=== PATIENT | female | born 1965 | race American Indian/Alaskan Native ===

== ENCOUNTER 2017-07-09 00:58 | Emergency (ER) | payer SELFPAY ==
[2017-07-09] MEDS ORDERED: TYLENOL ONE (02:30)
[2017-07-09 03:37] LABS: Anion Gap 18 mmol/L; BUN/Creatinine Ratio 14.28; Blood Urea Nitrogen 10 mg/dL (7-17); Calcium 9.2 mg/dL (8.4-10.2); Carbon Dioxide 21 mmol/L (22-30); Chloride 98.8 mmol/L (98-107); Glucose 117 mg/dL (65-100); Sodium 134 mmol/L (137-145)
[2017-07-09 03:57] LABS: Basophils % (Auto) 0.6 % (0.0-1.8); Eosinophils % (Auto) 0.3 % (0.0-4.3); Hematocrit 36.3 % (30.3-42.9); Hemoglobin 12.5 gm/dl (10.1-14.3); Mean Corpuscular HGB Conc 35 % (30-34); Mean Corpuscular Hemoglobin 30 pg (28-32); Mean Corpuscular Volume 87 fl (79-97); Platelet Count 457 K/mm3 (140-440); Red Blood Count 4.15 M/mm3 (3.65-5.03); Red Cell Distribution Width 14.4 % (13.2-15.2)
[2017-07-09 04:00] LABS: Bacteria,Urine 1+ /HPF (Negative); Bilirubin,Urine NEG (Negative); Blood,Urine SM (Negative); Ketones,Urine NEG (Negative); Leukocyte Esterase,Urine NEG (Negative); Mucus,Urine FEW /HPF; Nitrite,Urine NEG (Negative); Protein,Urine <15 mg/dL mg/dL (Negative); Urobilinogen,Urine < 2.0 mg/dL (<2.0)
[2017-07-09] MEDS ORDERED: TYLENOL PO ONE (06:58)
--- NOTE | 2017-07-09 07:02 | Emergency Department Report ---
HPI - General Chief Complaint: Skin/Abscess/Foreign Body Time Seen by Provider: 07/09/17 06:49 - HPI HPI: Room 24 The patient is a 51-year-old female presenting with a chief complaint of "boils " on left buttocks. The patient states early last week she noticed "boils" on her left buttocks. Patient states it became increasingly painful to sit on. Patient notices subjective fever at home. The patient gives the pain score of 6 /10 Location: Left buttocks Duration: Approximately 1 week Quality: Pain Severity: 6/10 Modifying factors: Sitting down increases the pain Context: [see above] Mode of transportation: The patient drove herself to the emergency department and although she has a visitor present she is the only one able to drive ED Past Medical Hx - Past Medical History Previous Medical History?: Yes Hx Hypertension: Yes - Surgical History Past Surgical History?: Yes Additional Surgical History: Breast reduction, lippo suction, and Csectx 1 - Family History Family history: no significant - Social History Smoking Status: Never Smoker Substance Use Type: Alcohol (occasional) - Medications Home Medications: Home Medications Medication Instructions Recorded Confirmed Last Taken Type Ciprofloxacin HCl [Ciprofloxacin 500 mg PO Q12HR #14 tab 07/09/17 Unknown Rx TAB] HYDROcodone/APAP 5-325 [Bells 1 - 2 each PO Q6HR PRN #14 tablet 07/09/17 Unknown Rx 5/325] Sulfamethoxazole/Trimethoprim 1 each PO BID #14 tablet 07/09/17 Unknown Rx [Bactrim DS TAB] ED Review of Systems ROS: Stated complaint: LEFT SIDE WEAKNESSS Other details as noted in HPI Comment: All other systems reviewed and negative Constitutional: fever Eyes: denies: eye pain, eye discharge, vision change ENT: denies: ear pain, throat pain Respiratory: denies: cough, shortness of breath, wheezing Cardiovascular: denies: chest pain, palpitations Endocrine: no symptoms reported Gastrointestinal: denies: abdominal pain, nausea, diarrhea Genitourinary: denies: urgency, dysuria, discharge Musculoskeletal: denies: back pain, joint swelling, arthralgia Skin: lesions Neurological: denies: headache, weakness, paresthesias Psychiatric: denies: anxiety, depression Hematological/Lymphatic: denies: easy bleeding, easy bruising Physical Exam - Physical Exam Vital Signs: Vital Signs 07/09/17 07/09/17 01:05 02:28 Temperature 102.2 F H 102.2 F H Pulse Rate 111 H 102 H Respiratory 22 22 Rate Blood Pressure 150/103 Blood Pressure 150/103 [Right] O2 Sat by Pulse 94 96 Oximetry Physical Exam: GENERAL: The patient is well-developed well-nourished female lying on stretcher not appearing to be in acute distress. [] HEENT: Normocephalic. Atraumatic. Extraocular motions are intact. Patient has moist mucous membranes. NECK: Supple. Trachea midline CHEST/LUNGS: Clear to auscultation. There is no respiratory distress noted. HEART/CARDIOVASCULAR: Regular. There is no tachycardia. There is no gallop rub or murmur. ABDOMEN: Abdomen is soft, nontender. Patient has normal bowel sounds. There is no abdominal distention. SKIN: There are 2 circular regions of skin breakdown along the left buttocks approximately 1 cm in diameter each. There is no overlying cellulitis/ erythema. There is no increased warmth. There is no fluctuance or areas of induration. No evidence of infection present on the left buttocks. There is no edema. There is no diaphoresis. NEURO: The patient is awake, alert, and oriented. The patient is cooperative. The patient has normal speech MUSCULOSKELETAL: There is no evidence of acute injury. ED Course Vital Signs 07/09/17 07/09/17 01:05 02:28 Temperature 102.2 F H 102.2 F H Pulse Rate 111 H 102 H Respiratory 22 22 Rate Blood Pressure 150/103 Blood Pressure 150/103 [Right] O2 Sat by Pulse 94 96 Oximetry ED Medical Decision Making - Lab Data Result diagrams: 07/09/17 02:49 07/09/17 02:49 Laboratory Tests 07/09/17 07/09/17 07/09/17 02:49 02:49 02:49 WBC 16.0 H RBC 4.15 Hgb 12.5 Hct 36.3 MCV 87 MCH 30 MCHC 35 H RDW 14.4 Plt Count 457 H Lymph % (Auto) 6.0 L [place] % (Auto) 6.4 Eos % (Auto) 0.3 Baso % (Auto) 0.6 Lymph # 1.0 L [place] # 1.0 H Eos # 0.1 Baso # 0.1 Seg Neutrophils % 86.7 H Seg Neutrophils # 13.9 H Sodium 134 L Potassium 4.0 Chloride 98.8 Carbon Dioxide 21 L Anion Gap 18 BUN 10 Creatinine 0.7 Estimated GFR > 60 BUN/Creatinine Ratio 14.28 Glucose 117 H Lactic Acid 1.10 Calcium 9.2 HCG, Qual Urine Color Urine Turbidity Urine pH Ur Specific [place] Urine Protein Urine Glucose (UA) Urine Ketones Urine Blood Urine Nitrite Urine Bilirubin Urine Urobilinogen Ur Leukocyte Esterase Urine WBC (Auto) Urine RBC (Auto) U Epithel Cells (Auto) Urine Bacteria (Auto) Urine Mucus 07/09/17 07/09/17 02:49 Unknown WBC RBC Hgb Hct MCV MCH MCHC RDW Plt Count Lymph % (Auto) [place] % (Auto) Eos % (Auto) Baso % (Auto) Lymph # [place] # Eos # Baso # Seg Neutrophils % Seg Neutrophils # Sodium Potassium Chloride Carbon Dioxide Anion Gap BUN Creatinine Estimated GFR BUN/Creatinine Ratio Glucose Lactic Acid Calcium HCG, Qual Negative Urine Color Yellow Urine Turbidity Clear Urine pH 5.0 Ur Specific [place] 1.017 Urine Protein <15 mg/dl Urine Glucose (UA) Neg Urine Ketones Neg Urine Blood Sm Urine Nitrite Neg Urine Bilirubin Neg Urine Urobilinogen < 2.0 Ur Leukocyte Esterase Neg Urine WBC (Auto) 1.0 Urine RBC (Auto) 2.0 U Epithel Cells (Auto) 1.0 Urine Bacteria (Auto) 1+ Urine Mucus Few - Medical Decision Making I explained to the patient that the lesions on her left buttocks did not look significant enough to cause her fever and leukocytosis. There is no evidence of fluctuance/abscess that may be drained at this time. Blood cultures will be drawn and patient was given strong warnings to return should she develop other symptoms. Patient advised to follow-up - Differential Diagnosis abscess, bacteremia, UTI Critical care attestation.: If time is entered above; I have spent that time in minutes in the direct care of this critically ill patient, excluding procedure time. ED Disposition Clinical Impression: Fever, Left buttock pain, Leukocytosis Disposition: [id number] TO HOME OR SELFCARE Is pt being admited?: No Does the pt Need Aspirin: No Condition: Stable Additional Instructions: Return to the emergency department immediately should you develop worsening symptoms, fever, inability to tolerate food or liquid or any other concerns. Prescriptions: Ciprofloxacin HCl [Ciprofloxacin TAB] 500 mg PO Q12HR #14 tab HYDROcodone/APAP 5-325 [Bells 5/325] 1 - 2 each PO Q6HR PRN #14 tablet PRN Reason: Pain Sulfamethoxazole/Trimethoprim [Bactrim DS TAB] 1 each PO BID #14 tablet Referrals: PRIMARY CARE, [Primary Care Provider] - 3-5 Days [facility] [Outside] - 3-5 Days Time of Disposition: 07:05
[2017-07-09 07:27] VITALS: BP 148/98
== END 2017-07-09 07:27 | disposition home or self-care (01) ==
LOC: ED 00:58
DX: M79.1 Myalgia (principal); R50.9 Fever, unspecified; D72.829 Elevated white blood cell count, unspecified; I10 Essential (primary) hypertension
CPT/HCPCS: 36415; 80048; 81001; 82140; 84703; 85025; 87040; 99283